=== PATIENT | female | born 1995 | race Caucasian/White ===

== ENCOUNTER 2018-05-07 06:06 | Day surgery (SDC) | payer BC ==
[2018-05-06 12:05] LABS: Urine Bacteria FEW /hpf (None Seen); Urine Blood Negative /uL (Negative); Urine Mucus FEW (None Seen); Urine Specific Gravity 1.023 (1.001-1.035); Urine WBC 3 /hpf (0 - 5)
[2018-05-06 12:08] LABS: Basophils # (auto) 0 uL; Basophils % (auto) 0.5 % (0.0-2.0); Eosinophils # (auto) 0.4 uL; Eosinophils % (auto) 5.3 % (0.0-7.0); Hematocrit 45.5 % (36.0-46.0); Hemoglobin 15.6 g/dL (12.2-16.2); Lymphocytes # (auto) 1.3 uL; Mean Corpuscular Hemoglobin 32.3 pg (28.0-32.0); Mean Corpuscular Hgb Conc. 34.4 g/dL (32.0-36.0); Mean Corpuscular Volume 93.9 fL (80.0-100.0); Monocytes # (auto) 0.6 uL; Neutrophils # (auto) 4.4 uL; Neutrophils % (auto) 65.2 % (37.0-80.0); Nucleated Red Blood Cells % 0.2 %; Platelet Count (auto) 197 10^3/uL (140-450); Red Blood Cells 4.84 10^6/uL (4.0-5.20); Red Cell Distribution Width 12.2 % (11.8-14.3); White Blood Cell 6.7 10^3/uL (4.4-10.8)
[2018-05-06 12:19] LABS: Albumin 3.9 g/dL (3.4-5.0); BUN/Creatinine Ratio 12.7; Bilirubin, Total 0.5 mg/dL (0.2-1.0); Calcium 8.9 mg/dL (8.5-10.1); Potassium 3.6 mmol/L (3.5-5.1); Total Protein 7.3 g/dL (6.4-8.2)
[2018-05-06 12:53] LABS: INR 0.94 (0.9-1.15); Partial Thromboplastin Time 26.5 sec (23.78-33.04); Prothrombin Time 10.1 sec (9.27-12.13)
[~2018-05-07] VITALS: Ht 157.5 cm; Wt 57.6 kg
[2018-05-07] MEDS ORDERED: ceFAZolin 1GM/50ML 50 ML IV ONE (06:31)
[2018-05-07] MEDS ORDERED: BUPIVACAINE 0.25% INJ 50ML VIAL ONE (07:13)
[2018-05-07] MEDS ORDERED: MIDAZOLAM HCL 1MG/1ML-2 ML VIAL ONE (07:22)
[2018-05-07] MEDS ORDERED: ROCURONIUM 10MG/ML 10ML VIAL IV ONE (07:22)
[2018-05-07] MEDS ORDERED: fentaNYL CITRATE 100 MCG/2 ML VL ONE (07:22)
[2018-05-07] MEDS ORDERED: PROPOFOL 10 MG/ML 20 ML IV ONE (07:23)
[2018-05-07] MEDS ORDERED: MORPHINE SULFATE INJECTION 1 ML ONE (07:59)
[2018-05-07] MEDS ORDERED: NEOSTIGMINE 1 MG/ML INJ (10mg/10ML VIAL) ONE (08:24)
[2018-05-07] MEDS ORDERED: GLYCOPYRROLATE 0.2 MG/ML 1ML VIAL ONE (08:24)
[2018-05-07] MEDS ORDERED: MORPHINE SULFATE 4 MG/ML SYR/VIAL IV PRN (08:45)
[2018-05-07] MEDS ORDERED: ePHEDrine SULFATE 50 MG/ML AMP IV PRN (08:45)
[2018-05-07] MEDS ORDERED: hydrALAZINE HCL 20 MG/ML VL IV PRN (08:45)
[2018-05-07] MEDS ORDERED: ONDANSETRON HCL 4 MG/2 ML VIAL IV ONE (08:45)
[2018-05-07 09:33] VITALS: BP 101/63
== END 2018-05-07 09:40 | disposition home or self-care (01) ==
LOC: SUR 06:06
PROVIDERS: ATTEND Orthopaedic Surgery
DX: S42.022A Displaced fracture of shaft of left clavicle, initial encounter for closed fracture (principal); V89.2XXA Person injured in unspecified motor-vehicle accident, traffic, initial encounter; F17.210 Nicotine dependence, cigarettes, uncomplicated; Y93.89 Activity, other specified; Y92.89 Other specified places as the place of occurrence of the external cause; Y99.8 Other external cause status
CPT/HCPCS: 23515; 36415; 80053; 81001; 81025; 84702; 85025; 85610; 85730; C1713; J0690; J2250; J2270; J2704; J3010; J3490; A4565

== ENCOUNTER 2019-06-24 15:14 | Emergency (ER) | payer BC, OTHER ==
[~2019-06-24] VITALS: Ht 157.5 cm; Wt 59.9 kg
[2019-06-24 16:36] LABS: Urine Bacteria FEW /hpf (None Seen); Urine Blood TRACE /uL (Negative); Urine Mucus FEW (None Seen); Urine WBC 398 /hpf (0 - 5)
[2019-06-24 18:43] VITALS: BP 113/71
== END 2019-06-24 20:43 | disposition home or self-care (01) ==
LOC: ER 15:21
DX: O20.0 Threatened abortion (principal); O23.41 Unspecified infection of urinary tract in pregnancy, first trimester; Z3A.01 Less than 8 weeks gestation of pregnancy
CPT/HCPCS: 36415; 76801; 81001; 84702